=== PATIENT | female | born 1995 | race Caucasian/White ===

== ENCOUNTER 2017-09-03 13:30 | Inpatient (IN) | payer BC, SELFPAY ==
[2017-08-30 17:09] VITALS: BMI 26.9
[2017-09-03] VITALS (14 sets, daily range): BP systolic 106–126; BP diastolic 48–72; PULSE 71–93; RESP 12–18; TEMP 36.3–36.7; O2SAT 93–100
[2017-09-03] MEDS: Lactated Ringers 1,000 ML 999 ML IV (14:00)
[2017-09-03 14:19] LABS: Absolute Lymphocyte Count 2.14 X10^3/ul (0.83-4.51); Absolute Neutrophil Count 10.9 X10^3/uL (2.0-7.7); Basophil% 0.7 % (0-1); Eosinophil# 0.08 X10^3/uL; Eosinophils% 0.6 % (0-5); Hematocrit 37.2 % (37-47); Hemoglobin 12.8 g/dl (12.0-15.0); Lymphocyte # 2.14 X10^3/ul (4.0); Lymphocyte % 14.9 % (19-41); Mean Corp Hgb Conc 34.4 g/gl (32-36); Mean Corpuscular Hgb 31.4 pg (27.0-32.0); Mean Corpuscular Volume 91.2 fL (81-99); Monocyte# 0.84 X10^3/uL; Monocyte% 5.9 % (0-10); Neutrophil # 10.93 X10^3/uL (2.7-7.7); Neutrophil % 76.3 % (47-70); Platelet Count 158 K/mm3 (150-450); RBC Distribution Width CV 13.2 % (11.6-14.6); Red Blood Count 4.08 M/mm3 (4.2-5.4); White Blood Count 14.3 K/mm3 (4.4-11.0)
[2017-09-03 14:27] LABS: POSITIVE COUNT NO; POSITIVE DIFFERENTIAL NO; POSITIVE MORPHOLOGY NO
[2017-09-03] MEDS: Lactated Ringers 1,000 ML 150 ML IV (15:31)
[2017-09-03] MEDS: Sodium Citrate/Citric Acid 30 ML UDC PO (16:25)
[2017-09-03] MEDS: Cefazolin 2 GM in 0.9% Normal Saline 100 ML IV (16:39)
[2017-09-03] MEDS: Oxytocin 30 units/NS 500 ml 30 UNITS/500 ML IV.SOLN 167 UNITS IV (16:55)
[2017-09-03] MEDS: Methylergonovine 0.2 MG/ML Ampul IM (17:01)
--- NOTE | 2017-09-03 17:32 | PCM.OB.CSR ---
Delivery Classification: Scheduled Final RUPERTO: 09/10/17 Gestational age: 39 Weeks and 0 Days Indications for : Repeat Elective Description of Procedure: Patient taken to OR where spinal anesthesia was placed. She was prepped and draped in normal sterile fashion in a dorsal lithotomy position with a leftward tilt. After ensuring adequacy of anesthesia the Pfannensteil skin incision was made and carried through to the underlying fascia with a bovie. The fascia was incised in the midline and carried laterally with the Gonzáles scissors. The rectus muscles were in the midline and the peritoneum was entered bluntly. A uterine window was noted. The bladder flap was dissected down carefully with the Metzenbaum scissors and blunt dissection. This removed the peritoneum that was over the uterine window. The uterine opening was then extended with gentle traction. The fetus was vertex and the head was brought to the incision in the flexed position. With good fundal pressure the head easily delivered. Gentle traction placed on head to allow delivery of anterior & posterior shoulders. No excess traction placed on head. The body delivered easily. The 3VC cord was clamped and cut after 1 minute delay and the handed off to the waiting RN. The placenta was delivered w/ gentle traction and fundal massage and the uterus was exteriorized and cleared of all clots and debris. The uterine incision was closed with 1 vicryl suture in a running locked fashion. The bovie was used to further obtain excellent hemostasis of the uterine incision. The uterus was returned to the peritoneal cavity. The pelvis was irrigated & then cleared of all clots and debris. The uterine incision was reexamined and found to be hemostatic. Some emeterio was placed over the uterine incision due to the denuded areas. The parietal peritoneum was reapproximated with running 1 vicryl suture. The fascia was closed with looped PDS suture in a running standard fashion. The subcutaneous tissue was examined & any bleeding bovie cauterized. The subcutaneous tissue was reapproximated with 3-0 vicryl suture. The skin was closed in a subcuticular fashion by the [employer] with me present in the labor and delivery suite. I performed the remainder of the procedure w/ assistance. Amniotic Membrane Rupture Type: Artificial Amniotic Fluid Description: Clear Placenta Disposition: [facility] Drain: [place] to straight drain Fluids Replaced: 120ml Cord Entanglement: None Cord Vessel Description: 3 Vessels Esitmated Blood Loss (ml): 900ml Infant Gender: Female (1 minute): 9 (5 minute): 9 Delayed cord clamping: Yes Pre-op Antibiotic Given: Ancef 2 grams IV x1
[2017-09-03] MEDS: Ketorolac 30 MG/ML Syringe IV (17:45)
[2017-09-03] MEDS: Lactated Ringers 1,000 ML 100 ML IV (18:18)
[2017-09-03] MEDS: Ondansetron 4 MG/2 ML Vial IV (21:16)
[2017-09-04] VITALS (14 sets, daily range): BP systolic 104–117; BP diastolic 49–65; PULSE 78–94; RESP 16–18; TEMP 36.3–36.9; O2SAT 16–98
[2017-09-04] MEDS: Ketorolac 30 MG/ML Syringe IV ×4 (00:41→17:43)
[2017-09-04] MEDS: Lactated Ringers 1,000 ML 100 ML IV (03:03)
[2017-09-04 07:06] LABS: Hematocrit 31.2 % (37-47); Hemoglobin 10.5 g/dl (12.0-15.0); Mean Corp Hgb Conc 33.7 g/gl (32-36); Mean Corpuscular Hgb 30.9 pg (27.0-32.0); Mean Corpuscular Volume 91.8 fL (81-99); Mean Platelet Vol. 11.8 fl (6.2-12.0); Platelet Count 135 K/mm3 (150-450); RBC Distribution Width CV 13.2 % (11.6-14.6); RBC Distribution Width SD 42.8 fl (35.1-43.9); White Blood Count 12.1 K/mm3 (4.4-11.0)
[2017-09-04 07:11] LABS: Scan Indicated on CBC? Y/N NO
--- NOTE | 2017-09-04 08:43 | PN.OBGYN_ITS ---
Subjective: No complaints - Physical Exam General: Alert, Oriented x3 Abdomen: Soft - ff mid & below umb; incision - bandage c/d/i, Non Tender, Non- Distended Extremities: No Calf Tenderness Vital Signs Temp Pulse Resp BP Pulse Ox 97.6 F L 79 16 110/56 L 93 09/04/17 06:30 09/04/17 06:30 09/04/17 06:30 09/04/17 06:30 09/04/17 05:00 Oxygen Delivery Method Room Air Weight: 161 lb 9.581 oz Body Mass Index (BMI) 26.9 Intake and Output for Last 24 Hours 09/02/17 09/03/17 09/04/17 23:59 23:59 23:59 Intake Total 1485 / 1485 1071 / 1071 Output Total 600 / 600 2200 / 2200 Balance 885 / 885 -1129 / -1129 Laboratory Tests Past 24 Hrs 09/03/17 09/03/17 09/04/17 14:00 14:00 06:33 WBC 14.3 H 12.1 H RBC 4.08 L 3.40 L Hgb 12.8 10.5 L Hct 37.2 31.2 L MCV 91.2 91.8 MCH 31.4 30.9 MCHC 34.4 33.7 RDW 13.2 13.2 RDW Differential 43.0 42.8 Plt Count 158 135 L MPV 12.0 11.8 Immature Gran % (Auto) 1.600 H Neut % (Auto) 76.3 H Lymph % (Auto) 14.9 L [place] % (Auto) 5.9 Eos % (Auto) 0.6 Baso % (Auto) 0.7 Absolute Neuts (auto) 10.9 H Absolute Lymphs (auto) 2.14 Total Counted Not Reportable Blood Type O POSITIVE Antibody Screen NEGATIVE Assessment/Plan POD#1 Heme - HDS, cbc reviewed GI - ADAT - d/c hackett ROutine care
[2017-09-04] MEDS: 0.9% Saline Lock 10 ML Syringe IV ×2 (11:55→17:42)
[2017-09-04] MEDS: Senna/Docusate Sodium 1 Tablet PO (11:56)
[2017-09-04] MEDS: oxyCODONE 5 MG Tablet PO (19:39)
[2017-09-05] MEDS: 0.9% Saline Lock 10 ML Syringe IV (00:26)
[2017-09-05] MEDS: Ketorolac 30 MG/ML Syringe IV (00:26)
[2017-09-05] MEDS: Ibuprofen 600 MG Tablet PO ×2 (00:38→06:08)
[2017-09-05 01:00] VITALS: BP 115/70; PULSE 90; RESP 20; TEMP 36.8; O2SAT 95
--- NOTE | 2017-09-05 08:33 | DCINST_ITS ---
Discharge Diet: No Restrictions Discharge Activity: May Not Drive - for 2 weeks or while taking narcotic pain meds., May Shower, May Take a Tub Bath - in 7 days. May resume sexual activity in: 4-6 weeks Lifting Restrictions: 20 pounds Additional Activity Instructions:: Nothing in the vagina for 4-6 weeks. You may return to work/school in 6 weeks. Call your doctor if your incision/area has: Continuous Slow Oozing, Sudden Increased Bleeding, Increased Pain/ Swelling, Increased Redness, Foul Smelling Discharge Call your doctor if you observe: Fever of 101 or Higher Suture Line Care: Avoid Pulling/Pushing, Avoid Pinching/Bending Additional Instructions: If you experience any of the following, contact your healthcare provider. * Bleeding that soaks a pad every hour for 2 hours * Fever 100.4 or higher * Unrelieved incision or abdominal pain * Swelling, redness, discharge or bleeding from your incision or episiotomy site * Your incision begins to separate * Problems urinating (including inability to urinate or burning while urinating) . * Visual changes * Severe headache * Flu-like symptoms * Pain or redness in one of both of your breasts * Pain, warmth, tenderness or swelling in your legs, especially the calf area * Frequent nausea and vomiting * Symptoms of depression or anxiety If you experience any of the following, call 911 or go to the nearest Emergency Room. * Chest pain * Problems breathing * Seizure activity * Partial or complete paralysis of a body part, slurred speech, weakness or drooping of the face, or a sudden inability to walk or hold your balance Allergies/Adverse Reactions: Allergies No Known Allergies Allergy (Verified 12/11/15 21:03) Medications to take at Discharge Vits [Prenatabs FA ] 1 tablet PO DAILY 11/12/15 Acetaminophen [Tylenol] 1,000 mg PO Q8H PRN tablet 09/05/17 Oxycodone [Oxyir] 5 - 10 mg PO Q4H PRN PRN 7 Days #28 tab 09/05/17 Senna/Docusate Sodium [Senokot-S] 1 tab PO DAILY PRN #30 tablet 09/05/17 SimETHICONE [Mylicon] 80 mg PO PCHS PRN tablet 09/05/17 The following prescriptions were given: Oxycodone [Oxyir] 5 - 10 mg PO Q4H PRN PRN 7 Days #28 tab PRN Reason: Mod-Severe Pain (4-04/24) Follow-Up: Call to make an appointment with your doctor for an incision check in 1-2 weeks. You will also need a 6 week post- follow up appointment. Primary Care Physician: Care Physician,No Primary [Primary Care Provider] -
--- NOTE | 2017-09-05 08:39 | PN_ITS ---
Progress Note S: Patient sitting up in bed bonding with infant. Patient reports no issues at this time. Reports milk has not come in yet, she is pumping every 3 hours to stimulate breasts and formula feeding baby at this time until milk comes in. Denies GROSS, scotoma or dizziness. Denies issues with ambulation or urination. Desires discharge to home. O: VSS, Afebrile Hgb = 12.8 --> 10.5 Nipples without cracks or blisters FF midline, @ umbilicus Dressing dry and intact +2/4 reflexes in LE, no edema, negative calf tenderness to palpation scant rubra lochia A: 22 y/o G2, now P2, POD #2, Normal PP course P: 1) Discharge to home pending discharge 2)_Anticipatory PP health teaching done, patient can remove dressing on own POD #4 or 5 3) F/u in [facility] office in 1-2 weeks and 6 weeks PP Alisha Harris CNM
--- NOTE | 2017-09-05 08:43 | PCM.DC.SUM ---
Discharge Date and Diagnosis Date of Admission: 09/03/17 Date of Discharge: 09/05/17 Hospital Course and Treatment Operations: - - Repeat low transverse section Summary of Care Provided: The patient is a 22 year old male admitted for repeat low transverse section. This was performed without difficulty. By postoperative day #2 she was ambulating, urinating, tolerating regular diet and oral pain medications without difficulty. She was at home with routine instructions and follow-up in our office in 1-2 and 6 weeks or as needed. Rating her mild acute blood loss anemia well was appropriate for blood loss during surgery. [] Discharge Diet: No Restrictions Discharge Activity: May Not Drive - for 2 weeks or while taking narcotic pain meds., May Shower, May Take a Tub Bath - in 7 days. May resume sexual activity in: 4-6 weeks Additional Activity Instructions:: Nothing in the vagina for 4-6 weeks. You may return to work/school in 6 weeks. Call your doctor if your incision/area has: Continuous Slow Oozing, Sudden Increased Bleeding, Increased Pain/ Swelling, Increased Redness, Foul Smelling Discharge Call your doctor if you observe: Fever of 101 or Higher Suture Line Care: Avoid Pulling/Pushing, Avoid Pinching/Bending Home Medications: Medications to take at Discharge Vits [Prenatabs FA ] 1 tablet PO DAILY 11/12/15 Acetaminophen [Tylenol] 1,000 mg PO Q8H PRN tablet 09/05/17 Oxycodone [Oxyir] 5 - 10 mg PO Q4H PRN PRN 7 Days #28 tab 09/05/17 Senna/Docusate Sodium [Senokot-S] 1 tab PO DAILY PRN #30 tablet 09/05/17 SimETHICONE [Mylicon] 80 mg PO PCHS PRN tablet 09/05/17 Following Prescrptions Were Given to Patient: Oxycodone [Oxyir] 5 - 10 mg PO Q4H PRN PRN 7 Days #28 tab PRN Reason: Mod-Severe Pain (4-04/24) Primary Care Physician: Care Physician,No Primary [Primary Care Provider] - Meaningful Use Info Meaningful Use Diagnoses (Choose all that apply): None applicable
[2017-09-05 09:30] VITALS: BP 116/69; PULSE 105; RESP 20; TEMP 36.7; O2SAT 98
[2017-09-05] MEDS: Senna/Docusate Sodium 1 Tablet PO (09:37)
[2017-09-05 12:05] VITALS: BP 112/65; PULSE 99; RESP 18; TEMP 36.3; O2SAT 97
[2017-09-05] MEDS: oxyCODONE 5 MG Tablet PO (12:22)
== END 2017-09-05 13:05 | disposition home or self-care (01) | DRG 766 ==
PROVIDERS: Admitting Provider Obstetrics & Gynecology; Visit Provider Obstetrics & Gynecology
DX: O34.211 Maternal care for low transverse scar from previous cesarean delivery (principal); L40.50 Arthropathic psoriasis, unspecified; Z37.0 Single live birth; Z3A.39 39 weeks gestation of pregnancy
CPT/HCPCS: 85025; 85027; 86850; 86900; 99218; J7120; A4216; G0378; J2405